=== PATIENT | male | born 1975 | race American Indian/Alaskan Native ===

== ENCOUNTER 2019-05-10 19:59 | Emergency (ER) | payer SELFPAY ==
--- NOTE | 2019-05-10 20:19 | Emergency Department Report ---
Blank Doc - Documentation Documentation: 43-year-old male that presents with sensation of left sided fluid to the chest. Denies any chest pain or SOB. This initial assessment/diagnostic orders/clinical plan/treatment(s) is/are subject to change based on patient's health status, clinical progression and re-assessment by fellow clinical providers in the ED. Further treatment and workup at subsequent clinical providers discretion. Patient/guardians urged not to elope from the ED as their condition may be serious if not clinically assessed and managed. Initial orders include: 1- Patient sent to [facility] for further evaluation and treatment 2- CXR
[2019-05-10 20:23] VITALS: BP 146/99
--- NOTE | 2019-05-10 20:50 | XRay Report ---
CHEST 2 VIEWS INDICATION: left sided fluid sensation. COMPARISON: FINDINGS: Support devices: None. Heart: Within normal limits. Lungs: No acute air space or interstitial disease. Pleura: No significant pleural effusion. No pneumothorax. Additional findings: None. IMPRESSION: 1. No acute findings. Signer Name: Travis Thorpe MD Signed: 05/10/2019 8:46 PM Workstation Name: [id number]
[2019-05-10] MEDS ORDERED: ALUM-MAG HYDROX-SIMETH 200-200-20MG/5ML PO ONE (21:49)
[2019-05-10] MEDS ORDERED: LIDOCAINE VISCOUS 2% PO ONE (21:49)
[2019-05-10] MEDS ORDERED: PEPCID PO ONE (21:50)
--- NOTE | 2019-05-10 21:51 | Emergency Department Report ---
HPI - General Chief Complaint: Adult Asthma Time Seen by Provider: 05/10/19 20:19 - HPI HPI: 43 YO AA MALE WHO COMES TO ER WITH 4 DAY HX OF FLOATING FEELING IN HIS CHEST AND ABD. HE HAS TAKEN NOTHING FOR IT. NOTHING MAKES IT BETTER OR WORSE. [employer] HAD HIM CONVINCED HE HAD A PNEUMOTHORAX. FAMILY TOLD HIM TO GET CHECKED. NO TRAUMA. ED Past Medical Hx - Past Medical History Previous Medical History?: No - Surgical History Past Surgical History?: No - Family History Family history: no significant - Social History Smoking Status: Never Smoker Substance Use Type: None ED Review of Systems ROS: Stated complaint: FLIUID ON LT SIDE OF CHEST Other details as noted in HPI Comment: All other systems reviewed and negative Physical Exam - Physical Exam Vital Signs: Vital Signs 05/10/19 20:20 Temperature 98.3 F Pulse Rate 87 Respiratory 18 Rate Blood Pressure 146/99 O2 Sat by Pulse 100 Oximetry Physical Exam: ALERT AND ORIENTED NO FOCAL DEF AMBULATORY S1S2 LUNGS CTA ABD SNT NO CVA TENDERNESS NO EDEMA NO JVD ED Course Vital Signs 05/10/19 20:20 Temperature 98.3 F Pulse Rate 87 Respiratory 18 Rate Blood Pressure 146/99 O2 Sat by Pulse 100 Oximetry ED Medical Decision Making - Radiology Data Radiology results: report reviewed, image reviewed - Medical Decision Making XRAY ORDERED IN TRIAGE NORMAL MEDICATED WITH GI COCKTAIL WITH RELIEF NON TOXIC AMBULATORY TAKING PO NO CP NO SOB OTHERWISE HEALTHY MALE Vital Signs 05/10/19 20:20 Temperature 98.3 F Pulse Rate 87 Respiratory 18 Rate Blood Pressure 146/99 O2 Sat by Pulse 100 Oximetry - Differential Diagnosis GERD/FLATUS Critical care attestation.: If time is entered above; I have spent that time in minutes in the direct care of this critically ill patient, excluding procedure time. ED Disposition Clinical Impression: Flatulence, GERD (gastroesophageal reflux disease) Disposition: - TO HOME OR SELFCARE Is pt being admited?: No Does the pt Need Aspirin: No Condition: Stable Instructions: Gastroesophageal Reflux Disease (ED), Gas and Bloating (ED) Additional Instructions: OVER THE COUNTER GAS X IF NEEDED FOLLOW UP WITH PCP REFERRAL BELOW IF PERSISTS XRAY NORMAL TODAY Referrals: PRIMARY CARE, [Primary Care Provider] - 3-5 Days RICHIE CABALLERO MD [Staff Physician] - 3-5 Days Time of Disposition: 23:06
[2019-05-10] MEDS ORDERED: MYLICON PO ONE (22:00)
== END 2019-05-10 23:47 | disposition home or self-care (01) ==
LOC: ED 19:59
DX: K21.9 Gastro-esophageal reflux disease without esophagitis (principal)
CPT/HCPCS: 71046; 99283